=== PATIENT | female | born 1965 | race Caucasian/White ===

== ENCOUNTER → 2017-08-01 | Outpatient (REF) | LOC: ZLAB.WCH 18:33 | DX: Z01.89 Encounter for other specified special examinations (principal) ==

== ENCOUNTER → 2018-06-18 | Outpatient (REF) ==
[2018-06-18 19:28] LABS: THYROID STIMULATING HORMONE 6.86 uIU/mL (0.465-4.680)
== END ==
LOC: ZLAB.WCH 18:30
PROVIDERS: Internal Medicine
DX: Z01.89 Encounter for other specified special examinations (principal)

== ENCOUNTER → 2018-10-02 | Outpatient (REF) ==
[2018-10-02 09:57] LABS: THYROID STIMULATING HORMONE 1.75 uIU/mL (0.465-4.680)
== END ==
LOC: ZLAB.WCH 08:56
PROVIDERS: Internal Medicine
DX: Z01.89 Encounter for other specified special examinations (principal)

== ENCOUNTER → 2020-01-09 | Outpatient (CLI) | payer BC | LOC: MC.RAD 13:15 | DX: Z12.31 Encounter for screening mammogram for malignant neoplasm of breast (principal) ==

== ENCOUNTER → 2021-10-11 | Outpatient (CLI) | payer BC | LOC: MC.RAD 09:43 | DX: Z12.31 Encounter for screening mammogram for malignant neoplasm of breast (principal) ==